=== PATIENT | female | born 1980 | race Caucasian/White ===

== ENCOUNTER 2017-06-27 19:32 | Emergency (ER) | payer BC | END 2017-06-28 00:52 | disposition home or self-care (01) | LOC: FTE 06-28 00:52 | DX: M79.605 Pain in left leg (principal) | CPT/HCPCS: 29505; 93971; 99283-25 ==

== ENCOUNTER 2017-12-26 23:00 | Emergency (ER) | payer BC ==
[2017-12-27 00:50] LABS: ADD MAN DIFF? NO
[2017-12-27 00:51] LABS: WHITE BLOOD COUNT 10.9 10^3/ul (4.8-10.8)
[2017-12-27 00:51] LABS: BASOPHILS % 0.4 % (0.0-2.0); EOSINOPHILS # 0.2 10^3/ul (0.0-0.5); EOSINOPHILS % 1.7 % (0.0-7.0); HEMATOCRIT 37.8 % (37.0-47.0); HEMOGLOBIN 12.2 g/dl (12.0-16.0); LYMPHOCYTES # 3.6 10^3/ul (0.8-2.9); LYMPHOCYTES % 32.8 % (15.0-51.0); MEAN CORPUSCULAR HEMOGLOBIN 28.6 pg (29.0-33.0); MEAN CORPUSCULAR HGB CONC 32.3 g/dl (32.0-37.0); MEAN CORPUSCULAR VOLUME 88.5 fl (82.0-101.0); MEAN PLATELET VOLUME 11.6 fl (7.4-10.4); MONOCYTE # 0.8 10^3/ul (0.3-0.9); MONOCYTES % 7.7 % (0.0-11.0); NEUTROPHIL # 6.2 10^3/ul (1.6-7.5); NEUTROPHILS % 57.1 % (39.0-77.0); PLATELET COUNT 205 10^3/UL (140-415); RED BLOOD COUNT 4.27 10^6/ul (4.20-5.40); RED CELL DISTRIBUTION WIDTH 13.3 % (11.5-14.5)
[2017-12-27] MEDS: KETOROLAC 30 MG INJ IM (00:56)
[2017-12-27 01:29] LABS: ANION GAP 15 (8-16); BLOOD UREA NITROGEN 10 mg/dl (7-20); CALCIUM 9.1 mg/dl (8.4-10.2); CARBON DIOXIDE 26 mmol/L (21-31); CHLORIDE 103 mmol/L (97-110); CREATININE 0.72 mg/dl (0.44-1.00); GLUCOSE 105 mg/dl (70-220); POTASSIUM 4.1 mmol/L (3.5-5.1); SODIUM 140 mmol/L (135-144)
[2017-12-27 02:35] LABS: URINE PH (Dip) POC 5.5 (5.0-8.5)
[2017-12-27 02:35] LABS: URINE BLOOD (Dip) POC Trace-lysed (NEGATIVE); URINE GLUCOSE (Dip) POC Negative (NEGATIVE); URINE KETONES (Dip) POC Negative (NEGATIVE); URINE LEUKOCYTE EST (Dip) POC Negative (NEGATIVE); URINE NITRITE (Dip) POC Negative (NEGATIVE); URINE TOTAL PROTEIN POC Negative (NEGATIVE)
== END 2017-12-27 02:48 | disposition home or self-care (01) ==
LOC: FTE 23:00
DX: R10.2 Pelvic and perineal pain (principal)
CPT/HCPCS: 36415; 76830; 76856; 80048; 81003; 81025; 85025; 96372; 99285-25

== ENCOUNTER 2018-05-23 10:27 | Emergency (ER) | payer BC | END 2018-05-23 11:25 | disposition home or self-care (01) | LOC: FTE 10:27 | DX: J32.9 Chronic sinusitis, unspecified (principal) | CPT/HCPCS: 99283; Z7502 ==

== ENCOUNTER 2018-08-15 11:07 | Emergency (ER) | payer BC | END 2018-08-15 14:20 | disposition home or self-care (01) | LOC: FTE 11:07 | DX: M25.50 Pain in unspecified joint (principal) | CPT/HCPCS: 99282; Z7502 ==

== ENCOUNTER 2019-01-23 09:27 | Day surgery (SDC) | payer BC ==
[~2019-01-23 09:27] MED LIST: CEFAZOLIN 2 GM/50 ML (PMX) 50 ML IVPB
[2019-01-23] MEDS: SOD CHLORIDE 0.9% 1,000 ML IV (10:36)
[2019-01-23 10:53] LABS: ADD MAN DIFF? NO
[2019-01-23 10:56] LABS: WHITE BLOOD COUNT 6.4 10^3/ul (4.8-10.8)
[2019-01-23 10:56] LABS: BASOPHILS % 0.3 % (0.0-2.0); EOSINOPHILS # 0.1 10^3/ul (0.0-0.5); EOSINOPHILS % 1.2 % (0.0-7.0); HEMATOCRIT 40.8 % (37.0-47.0); HEMOGLOBIN 12.9 g/dl (12.0-16.0); LYMPHOCYTES # 2.2 10^3/ul (0.8-2.9); LYMPHOCYTES % 33.7 % (15.0-51.0); MEAN CORPUSCULAR HEMOGLOBIN 27.3 pg (29.0-33.0); MEAN CORPUSCULAR HGB CONC 31.6 g/dl (32.0-37.0); MEAN CORPUSCULAR VOLUME 86.3 fl (82.0-101.0); MEAN PLATELET VOLUME 12.3 fl (7.4-10.4); MONOCYTE # 0.6 10^3/ul (0.3-0.9); MONOCYTES % 8.9 % (0.0-11.0); NEUTROPHIL # 3.6 10^3/ul (1.6-7.5); NEUTROPHILS % 55.7 % (39.0-77.0); PLATELET COUNT 198 10^3/UL (140-415); RED BLOOD COUNT 4.73 10^6/ul (4.20-5.40)
[2019-01-23 11:15] LABS: ALANINE AMINOTRANSFERASE 51 IU/L (13-69); ALBUMIN 4.6 g/dl (3.3-4.9); ALBUMIN/GLOBULIN RATIO 1.76; ALKALINE PHOSPHATASE 59 IU/L (42-121); ANION GAP 10 (5-13); ASPARTATE AMINO TRANSFERASE 24 IU/L (15-46); BILIRUBIN,INDIRECT 1.2 mg/dl (0-1.1); BILIRUBIN,TOTAL 1.2 mg/dl (0.2-1.3); BLOOD UREA NITROGEN 9 mg/dl (7-20); CALCIUM 9.5 mg/dl (8.4-10.2); CARBON DIOXIDE 24 mmol/L (21-31); CHLORIDE 108 mmol/L (97-110); CREATININE 0.72 mg/dl (0.44-1.00); Estimated GFR > 60 mL/min (>60); GLUCOSE 94 mg/dl (70-220); POTASSIUM 3.8 mmol/L (3.5-5.1); SODIUM 142 mmol/L (135-144); TOTAL PROTEIN 7.2 g/dl (6.1-8.1)
[2019-01-23 11:23] LABS: INR 0.95; PROTIME 12.8 Sec (11.9-14.9)
[2019-01-23] MEDS ORDERED: PROPOFOL 100 ML (11:27)
[2019-01-23] MEDS ORDERED: FENTAnyl 50 MCG/ML VIAL (11:32)
[2019-01-23] MEDS ORDERED: LIDOCAINE 2% (SDV) 5 ML INJ (11:34)
[2019-01-23] MEDS ORDERED: CEFAZOLIN 1 GM INJ (11:40)
[2019-01-23 11:42] LABS: PARTIAL THROMBOPLASTIN TIME 24.6 Sec (23.0-35.0)
[2019-01-23] MEDS ORDERED: DEXAMETHASONE 4 MG/ML 5 ML INJ (11:54)
[2019-01-23] MEDS ORDERED: ONDANSETRON 4 MG INJ ×2 (11:54→12:30)
[2019-01-23] MEDS: BUPIVACAINE 0.25% (MPF) 30 ML INJ (12:09)
[2019-01-23] MEDS ORDERED: SUGAMMADEX SODIUM 200 MG/2 ML VIAL IV (12:13)
[2019-01-23] MEDS ORDERED: HYDROCODONE/APAP (5/325) TAB PO (12:30)
[2019-01-23] MEDS: HYDROmorphONE 1 MG/5 ML IV SYRINGE IV (12:56)
[2019-01-23] MEDS: FENTAnyl 50 MCG/ML VIAL IV (12:57)
[2019-01-23] MEDS: KETOROLAC 30 MG INJ IV (12:57)
[2019-01-23] MEDS: ONDANSETRON 4 MG INJ IV (12:57)
[2019-01-23] MEDS ORDERED: hydrALAzine 20 MG INJ IV (13:00)
[2019-01-23] MEDS ORDERED: LABETALOL HCL 20MG INJ IV (13:00)
[2019-01-23] MEDS ORDERED: FENTAnyl 50 MCG/ML VIAL IV ×2 (13:00)
[2019-01-23] MEDS ORDERED: OXYCODONE/ACETAMINOPHEN (5/325) TAB PO ×2 (13:00)
[2019-01-23] MEDS ORDERED: EPHEDrine 25 MG/5 ML SYG IV (13:00)
[2019-01-23] MEDS ORDERED: MEPERIDINE 25 MG INJ IV (13:00)
[2019-01-23] MEDS ORDERED: DIPHENHYDRAMINE 50 MG INJ IV (13:00)
[2019-01-23] MEDS ORDERED: ALBUTEROL 0.083% (NEB) 2.5 MG/3 ML AMP HHN (13:00)
[2019-01-23] MEDS ORDERED: HYDROmorphONE 1 MG/5 ML IV SYRINGE IV ×2 (13:00)
[2019-01-23] MEDS ORDERED: METOCLOPRAMIDE 10 MG INJ IV (13:00)
== END 2019-01-23 14:00 | disposition home or self-care (01) ==
LOC: SDS 09:27
DX: K80.10 Calculus of gallbladder with chronic cholecystitis without obstruction (principal); M79.7 Fibromyalgia; E66.01 Morbid (severe) obesity due to excess calories
CPT/HCPCS: 47562; 80053; 84703; 85025; 85610; 85730; 88304